=== PATIENT | female | born 1990 | race Two or more races ===

== ENCOUNTER 2017-01-04 14:14 | Emergency (ER) | payer OTHER ==
[~2017-01-04] VITALS: Ht 152.4 cm; Wt 59.0 kg
[2017-01-04] MEDS ORDERED: PHENAZOPYRIDINE 200 MG TABLET. PO ONE (14:45)
[2017-01-04] MEDS ORDERED: NAPROXEN 500 MG TABLET PO ONE (14:45)
[2017-01-04 15:15] LABS: BASO % 0 % (0-3); EOS % 2 % (0-3); HEMATOCRIT 41.6 % (36.0-47.0); HEMOGLOBIN 13.5 g/dL (12.0-15.5); LYMPH # 1.8 x10^3/uL (1.0-4.8); LYMPH % 15 % (24-48); MEAN CORPUSCULAR HEMOGLOBIN 28 pg (25-35); MEAN CORPUSCULAR HGB CONC 33 g/dL (31-37); MEAN CORPUSCULAR VOLUME 87 fL (79-100); MONO % 4 % (0-9); NEUT % 79 % (31-73); PLATELET COUNT 214 x10^3/uL (140-400); RED BLOOD COUNT 4.76 x10^6/uL (3.50-5.40); WHITE BLOOD COUNT 12.5 x10^3/uL (4.0-11.0)
[2017-01-04 15:39] LABS: CALCIUM 8.8 mg/dL (8.5-10.1); CREATININE 0.6 mg/dL (0.6-1.0); POTASSIUM 4.2 mmol/L (3.5-5.1)
[2017-01-04 15:45] LABS: NEG OBC UR NEG; POS OBC UR POS
[2017-01-04 15:45] LABS: ALBUMIN 3.7 g/dL (3.4-5.0); ALBUMIN/GLOBULIN RATIO 0.9 (1.0-1.7); TOTAL BILIRUBIN 0.3 mg/dL (0.2-1.0)
[2017-01-04 15:52] LABS: BILIRUBIN,URINE NEGATIVE (NEG); GLUCOSE,URINE NEGATIVE (NEG); NITRITE,URINE NEGATIVE (NEG); PH,URINE 6.5; PROTEIN,URINE NEGATIVE (NEG-TRACE); UROBILINOGEN,URINE 0.2 mg/dL (0.2 mg/dL)
[2017-01-04 16:05] LABS: BACTERIA,URINE FEW /HPF (0-FEW); RBC,URINE 0 /HPF (0-2); SQUAMOUS EPITHELIAL CELL,UR FEW /LPF; WBC,URINE RARE /HPF (0-4)
--- NOTE | 2017-01-04 16:55 | RAD ---
EXAM: CT abdomen/pelvis without contrast. HISTORY: Bilateral flank pain and dysuria. Back pain. TECHNIQUE: Computed tomography of the abdomen and pelvis was performed without intravenous contrast. COMPARISON: None. FINDINGS: Lung windows through the visualized portions of the bases reveal mild atelectasis. Bone windows reveal no suspicious lesions. There is partial sacralization of the left L5 segment with mild degenerative change between the sacralized left L5 transverse process and the superior margin of the left sacral ala. The right ovary contains a small cyst or dominant follicle that measures 4.0 x 3.3 cm. Follicle on the left measures 2.2 cm. There is no gross hemoperitoneum. Fluid does track up both pericolic gutters. There is no drainable collection. The liver, spleen, pancreas, adrenal glands, gallbladder and kidneys are unremarkable without contrast. There is no hydronephrosis or perinephric stranding. There are no renal or ureteral calculi. There is no obstruction. There are no pathologically enlarged lymph nodes. IMPRESSION: 1. 4 cm right ovarian cyst or dominant follicle. Sonography could further evaluate if there is concern for an ovarian cause for pain. 2. Small ascites may be reactive. Correlate for volume overload or other causes. 3. No hydronephrosis or clear perinephric stranding. No nephroureterolithiasis. *One or more of the following individualized dose reduction techniques were utilized for this examination: 1. Automated exposure control. 2. Adjustment of the mA and/or kV according to patient size. 3. Use of iterative reconstruction technique.
[2017-01-04] MEDS ORDERED: FENTANYL PF 100 MCG/2 ML VIAL. IV PRN (17:00)
[2017-01-04 19:00] VITALS: BP 126/78
--- NOTE | 2017-01-04 20:31 | RAD ---
PROCEDURE Ultrasound pelvis complete transabdominal and transvaginal ultrasound pelvis HISTORY Pelvic pain and abnormal CT negative HCG. TECHNIQUE Sonographic examination of the pelvis was performed by transabdominal and endovaginal technique. Multiple static images were obtained TRANSABDOMINAL ULTRASOUND PELVIS COMPLETE: The uterus measures 5.0 by a 0.0 x 3.5 centimeters appears normal. The endometrium appears normal measures 6.6 millimeters in thickness. The left ovary appears normal measures 2.7 x 2.0 x 3.7 centimeters and has normal blood flow. The right ovary appears abnormal but is not well seen. There appears to be some complex fluid. TRANSVAGINAL ULTRASOUND PELVIS The right ovary appears abnormal measures 5.0 x 4.6 x 3.8 centimeters. This is heterogeneous and cystic. There is complex fluid around right ovary and in the cul-de-sac. There is normal blood flow in the right ovary. IMPRESSION Complex enlarged right ovary and complex fluid around the right ovary and in the cul-de-sac. This is likely a ruptured hemorrhagic cyst. Consider a 2-3 months follow up ultrasound. Electronically signed by: Jonah Childress MD (Jan 04, 2017 20:30:23)
[2017-01-04] MEDS ORDERED: NAPR250T2 PO (20:58)
[2017-01-04] MEDS ORDERED: HYDR-2666 PO (20:58)
--- NOTE | 2017-01-04 21:16 | ED.ADGEN ---
Past Medical History Past Medical History: No Pertinent History Past Surgical History: No Surgical History Alcohol Use: None Drug Use: None Adult General Chief Complaint Chief Complaint: ABDOMINAL PAIN HPI HPI Patient is a 26 year old woman, who presents emergency department via EMS with a complaint of abdominal and flank pain. Patient states that pain began today, located down in her left lower quadrant, radiating up to her left flank, denies any injuries, denies any similar symptoms previously. Nausea, no vomiting, no diarrhea. No fevers or chills. States she is experiencing some dysuria, no frequency or urgency. No blood in urine. Denies any possibility of , no sick contacts or exposures, no STD concerns. She has not taken any medications prior to coming to the ED. Translation line used for evaluation. Review of Systems Review of Systems Constitutional: Denies fever or chills. [] Eyes: Denies change in visual acuity. [] HENT: Denies nasal congestion or sore throat. [] Respiratory: Denies cough or shortness of breath. [] Cardiovascular: Denies chest pain or edema. [] GI: Denies vomiting, bloody stools or diarrhea. [] Abdominal and flank pain left-sided. Began this morning, sharp and stabbing in nature. : Denies dysuria. [] Musculoskeletal: Denies back pain or joint pain. [] Integument: Denies rash. [] Neurologic: Denies headache, focal weakness or sensory changes. [] Endocrine: Denies polyuria or polydipsia. [] Lymphatic: Denies swollen glands. [] Psychiatric: Denies depression or anxiety. [] Current Medications Current Medications Current Medications Medications (Trade) Dose Ordered Sig/Nir Start Time Stop Time Status Last Admin Dose Admin Fentanyl Citrate (Fentanyl 2ml Vial) 25 mcg PRN Q15MIN PRN 01/04/17 17:00 01/04/17 22:00 DC 01/04/17 19:11 25 MCG Naproxen (Naprosyn) 500 mg 1X ONCE 01/04/17 14:45 01/04/17 15:19 DC 01/04/17 17:05 500 MG Phenazopyridine HCl (Pyridium) 200 mg 1X ONCE 01/04/17 14:45 01/04/17 15:19 DC 01/04/17 17:05 200 MG Allergies Allergies Allergies Coded Allergies Type Severity Reaction Last Updated Verified No Known Drug Allergies 01/04/17 No Physical Exam Physical Exam Constitutional: Well developed, well nourished, mild distress secondary to pain , non-toxic appearance. [] HENT: Normocephalic, atraumatic, bilateral external ears normal, oropharynx moist, no oral exudates, nose normal. [] Eyes: PERRLA, EOMI, conjunctiva normal, no discharge. [] Neck: Normal range of motion, no tenderness, supple, no stridor. [] Cardiovascular:Heart rate regular rhythm, no murmur, S1, S2, rubs or gallops. [] Lungs & Thorax: Bilateral breath sounds clear to auscultation, no wheezing, rhonchi, rales. No chest tenderness or crepitus. [] Abdomen: Bowel sounds normal, soft, mild initial patient in the suprapubic and left lower quadrant region, also left flank, no signs of trauma, no masses, no pulsatile masses. [] Skin: Warm, dry, no erythema, no rash. [] Back: No tenderness, left-sided CVA tenderness. [] Extremities: No tenderness, no cyanosis, no clubbing, ROM intact, no edema. [] Neurologic: Alert and oriented X 3, normal motor function, normal sensory function, no focal deficits noted. [] Psychologic: Affect normal, judgement normal, mood normal. [] Current Patient Data Vital Signs Vital Signs Date Time Temp Pulse Resp B/P Pulse Ox O2 Delivery O2 Flow Rate FiO2 01/04/17 19:11 20 97 Room Air 01/04/17 19:00 91 126/78 01/04/17 14:14 97.6 97.6 Lab Values Laboratory Tests Test 01/04/17 15:00 01/04/17 15:24 White Blood Count 12.5x10^3/uL (4.0-11.0) H Red Blood Count 4.76x10^6/uL (3.50-5.40) Hemoglobin 13.5g/dL (12.0-15.5) Hematocrit 41.6% (36.0-47.0) Mean Corpuscular Volume 87fL (79-100) Mean Corpuscular Hemoglobin 28pg (25-35) Mean Corpuscular Hemoglobin Concent 33g/dL (31-37) Red Cell Distribution Width 13.0% (11.5-14.5) Platelet Count 214x10^3/uL (140-400) Neutrophils (%) (Auto) 79% (31-73) H Lymphocytes (%) (Auto) 15% (24-48) L Monocytes (%) (Auto) 4% (0-9) Eosinophils (%) (Auto) 2% (0-3) Basophils (%) (Auto) 0% (0-3) Neutrophils # (Auto) 9.9x10^3uL (1.8-7.7) H Lymphocytes # (Auto) 1.8x10^3/uL (1.0-4.8) Monocytes # (Auto) 0.5x10^3/uL (0.0-1.1) Eosinophils # (Auto) 0.3x10^3/uL (0.0-0.7) Basophils # (Auto) 0.0x10^3/uL (0.0-0.2) Sodium Level 137mmol/L (136-145) Potassium Level 4.2mmol/L (3.5-5.1) Chloride Level 101mmol/L (98-107) Carbon Dioxide Level 29mmol/L (21-32) Anion Gap 7 (6-14) Blood Urea Nitrogen 10mg/dL (7-20) Creatinine 0.6mg/dL (0.6-1.0) Estimated GFR (Cockcroft-Gault) 119.0 BUN/Creatinine Ratio 17 (6-20) Glucose Level 90mg/dL (70-99) Calcium Level 8.8mg/dL (8.5-10.1) Total Bilirubin 0.3mg/dL (0.2-1.0) Aspartate Amino Transferase (AST) 30U/L (15-37) Alanine Aminotransferase (ALT) 52U/L (14-59) Alkaline Phosphatase 109U/L (46-116) Total Protein 8.0g/dL (6.4-8.2) Albumin 3.7g/dL (3.4-5.0) Albumin/Globulin Ratio 0.9 (1.0-1.7) L Urine Collection Type U cath Urine Color Yellow Urine Clarity Clear Urine pH 6.5 Urine Specific Echo 1.020 Urine Protein Negativemg/dL (NEG-TRACE) Urine Glucose (UA) Negativemg/dL (NEG) Urine Ketones (Stick) Negativemg/dL (NEG) Urine Blood Negative (NEG) Urine Nitrite Negative (NEG) Urine Bilirubin Negative (NEG) Urine Urobilinogen Dipstick 0.2mg/dL (0.2 mg/dL) Urine Leukocyte Esterase Negative (NEG) Urine RBC 0/HPF (0-2) Urine WBC Rare/HPF (0-4) Urine Squamous Epithelial Cells Few/LPF Urine Transitional Epithelial Cells Few/LPF Urine Bacteria Few/HPF (0-FEW) Urine Mucus Mod/LPF Urine Test Negative (NEG) Laboratory Tests 01/04/17 15:00 Laboratory Tests 01/04/17 15:00 EKG EKG ECG: Rhythm strip: [] Sinus rhythm, heart rate 98 bpm, no ectopy. As interpreted by me. Radiology/Procedures Radiology/Procedures [] [facility] [address] [place] [address] IMAGING REPORT Signed PATIENT: MANISHA GALINDO ACCOUNT: [id number] : 1990 LOCATION: ER AGE: 26 SEX: F EXAM STATUS: REG ER ORD. PHYSICIAN: TAMERA NESBITT DO REASON: Flank pain PROCEDURE: ABDOMEN PELVIS WO CONTRAST EXAM: CT abdomen/pelvis without contrast. HISTORY: Bilateral flank pain and dysuria. Back pain. TECHNIQUE: Computed tomography of the abdomen and pelvis was performed without intravenous contrast. COMPARISON: None. FINDINGS: Lung windows through the visualized portions of the bases reveal mild atelectasis. Bone windows reveal no suspicious lesions. There is partial sacralization of the left L5 segment with mild degenerative change between the sacralized left L5 transverse process and the superior margin of the left sacral ala. The right ovary contains a small cyst or dominant follicle that measures 4.0 x 3.3 cm. Follicle on the left measures 2.2 cm. There is no gross hemoperitoneum. Fluid does track up both pericolic gutters. There is no drainable collection. The liver, spleen, pancreas, adrenal glands, gallbladder and kidneys are unremarkable without contrast. There is no hydronephrosis or perinephric stranding. There are no renal or ureteral calculi. There is no obstruction. There are no pathologically enlarged lymph nodes. IMPRESSION: 1. 4 cm right ovarian cyst or dominant follicle. Sonography could further evaluate if there is concern for an ovarian cause for pain. 2. Small ascites may be reactive. Correlate for volume overload or other causes. 3. No hydronephrosis or clear perinephric stranding. No nephroureterolithiasis. *One or more of the following individualized dose reduction techniques were utilized for this examination: 1. Automated exposure control. 2. Adjustment of the mA and/or kV according to patient size. 3. Use of iterative reconstruction technique. DICTATED and SIGNED BY: ASHLEY RAIN MD DATE: 01/04/171647 CC: TAMERA NESBITT DO; UNKNOWN PCP NAME ~ Impressions: [facility] [address] [place] [address] IMAGING REPORT Signed PATIENT: MANISHA GALINDO ACCOUNT: [id number] : 1990 LOCATION: ER AGE: 26 SEX: F EXAM STATUS: REG ER ORD. PHYSICIAN: TAMERA NESBITT DO REASON: Pelvic pain PROCEDURE: PELVIS W/TV PROCEDURE Ultrasound pelvis complete transabdominal and transvaginal ultrasound pelvis HISTORY Pelvic pain and abnormal CT negative HCG. TECHNIQUE Sonographic examination of the pelvis was performed by transabdominal and endovaginal technique. Multiple static images were obtained TRANSABDOMINAL ULTRASOUND PELVIS COMPLETE: The uterus measures 5.0 by a 0.0 x 3.5 centimeters appears normal. The endometrium appears normal measures 6.6 millimeters in thickness. The left ovary appears normal measures 2.7 x 2.0 x 3.7 centimeters and has normal blood flow. The right ovary appears abnormal but is not well seen. There appears to be some complex fluid. TRANSVAGINAL ULTRASOUND PELVIS The right ovary appears abnormal measures 5.0 x 4.6 x 3.8 centimeters. This is heterogeneous and cystic. There is complex fluid around right ovary and in the cul-de-sac. There is normal blood flow in the right ovary. IMPRESSION Complex enlarged right ovary and complex fluid around the right ovary and in the cul-de-sac. This is likely a ruptured hemorrhagic cyst. Consider a 2-3 months follow up ultrasound. Electronically signed by: Monty Tripp MD (Jan 04, 2017 20:30:23) DICTATED and SIGNED BY: MONTY TRIPP III, MD DATE: 01/04/172029 CC: TAMERA NESBITT DO; UNKNOWN PCP NAME ~ Course & Med Decision Making Course & Med Decision Making Pertinent Labs and Imaging studies reviewed. (See chart for details) Patient's history and examination is concerning for possible urinary infection, or renal calculi, laboratory studies including urine, and a CT of the abdomen and pelvis were obtained based on the patient's degree of discomfort, she received oral and IV pain medication. CT did not reveal any evidence of stone, however evidence of a left-sided ovarian cyst was identified. Ultrasound was obtained to further elucidate her symptoms, and noted a left-sided hemorrhagic ovarian cyst. No other concerning finding for identified, no evidence of torsion. No evidence of infection of the patient's urine. Patient states she is feeling better at this time, and is ready to eat. Tolerating by mouth fluids without issue. Patient was written for naproxen, hydrocodone, and given contact information for Dr. Landa GLAZIER ARTIST to arrange follow-up. Information and instructions related via the language line saw edge fuser circular, with assistance of nurse Rubin, patient discharged home in stable condition with instructions, prescriptions, and precautions as stated. Dragon Disclaimer Dragon Disclaimer This electronic medical record was generated, in whole or in part, using a voice recognition dictation system. Departure Impression: Primary Impression: Hemorrhagic ovarian cyst Disposition: 01 HOME, SELF-CARE Condition: IMPROVED Scripts Hydrocodone Bit/Acetaminophen (Hydrocodone-Apap 5-325 )1 Each Tablet1 Tab PO PRN Q6HRS PRN PAIN #12 TAB Ref 0 Prov:TAMERA NESBITT DO 01/04/17 Naproxen 250 Mg [id number] Mg PO BID PRN PAIN #10 Prov:TAMERA NESBITT DO 01/04/17 TAMERA NESBITT DO Jan 04, 2017 21:16
--- NOTE | 2017-01-05 08:45 | RAD ---
EXAM: Pelvis one view. HISTORY: Pelvic pain. COMPARISON: None. FINDINGS: No fractures are identified. The joint spaces and alignment of both hips are maintained. There is partial sacralization of the left L5 segment, with associated articulation between the sacralized left L5 transverse process and the superior aspect of the sacroiliac. There is mild associated degenerative change. IMPRESSION: 1. No fracture. 2. Correlate for partial sacralization of the left L5 segment as a cause of pain.
== END 2017-01-04 21:50 | disposition home or self-care (01) ==
LOC: ER 14:14
DX: N83.202 Unspecified ovarian cyst, left side (principal)
CPT/HCPCS: 36415; 72170; 74176; 76830; 76856; 80053; 81001; 81025; 85027; 96374; 99285; J3010